=== PATIENT | male | born 1990 | race Caucasian/White ===

== ENCOUNTER 2022-09-11 12:30 | Emergency (ER) | payer MEDICAID ==
[~2022-09-11] VITALS: Ht 175.3 cm; Wt 72.6 kg
[2022-09-11 13:17] VITALS: BP 146/93
--- NOTE | 2022-09-11 14:14 | NUR ---
PATIENT CALLED FOR X RAY BY [employer], NO ANSWER IN LOBBY OR OUTSIDE
--- NOTE | 2022-09-11 14:39 | NUR ---
ATTEMPTED TO BRING PT BACK, NOT FOUND IN LOBBY/OUTSIDE
--- NOTE | 2022-09-11 15:03 | NUR ---
LAST ATTEMPT TO BRING PT BACK, NOT FOUND IN LOBBY/OUTSIDE. PATIENT LEFT WITHOUT BEING SEEN BY DR. ROMANO. NO FURTHER CARE PROVIDED FOR PATIENT.
== END 2022-09-11 14:14 | disposition left against medical advice (07) ==
LOC: MED 12:30
DX: R10.9 Unspecified abdominal pain (principal); Z53.21 Procedure and treatment not carried out due to patient leaving prior to being seen by health care provider

== ENCOUNTER 2023-01-30 08:45 | Emergency (ER) | payer MEDICAID ==
[~2023-01-30] VITALS: Ht 167.6 cm; Wt 59.0 kg
[2023-01-30 09:10] VITALS: BP 132/76; PULSE 89; RESP 18; TEMP 98.1; O2SAT 98
[2023-01-30 09:20] VITALS: O2SAT 98
--- NOTE | 2023-01-30 09:20 | NUR ---
MD LOO AT BEDSIDE FOR EVALUATION
[2023-01-30 09:22] VITALS: O2SAT 98
[2023-01-30] MEDS ORDERED: ACETAMINOPHEN 325 MG TAB PO ONE (09:30)
--- NOTE | 2023-01-30 09:36 | NUR ---
pt taken to ct via w/c
--- NOTE | 2023-01-30 10:25 | NUR ---
Patient discharged with v/s stable. Written and verbal after care instructions given and explained. Patient verbalized understanding. Ambulatory with steady gait. All questions addressed prior to discharge. Advised to follow up with PMD.
--- NOTE | 2023-01-30 11:14 | NUR ---
The patient's care was reviewed and supervised by [place] 05 STEPHEN, RN.
== END 2023-01-30 10:25 | disposition home or self-care (01) ==
LOC: MED 08:45
DX: R51.9 Headache, unspecified (principal)
CPT/HCPCS: 70450; 99284

== ENCOUNTER 2023-02-18 02:41 | Emergency (ER) | payer MEDICAID ==
[~2023-02-18] VITALS: Ht 175.3 cm; Wt 81.6 kg
[2023-02-18 02:52] VITALS: BP 127/83; PULSE 87; RESP 16; TEMP 98
--- NOTE | 2023-02-18 02:52 | NUR ---
to bed ambulatory
[2023-02-18] MEDS ORDERED: ACETAMINOPHEN EXTRA STRENGTH 500 MG TAB PO ONE (03:25)
--- NOTE | 2023-02-18 03:33 | NUR ---
Pt was taken to xray
--- NOTE | 2023-02-18 03:33 | NUR ---
Stool sample sent to lab
--- NOTE | 2023-02-18 03:33 | NUR ---
Attempted to collect urine, per pt, unable to urinate at this time.
[2023-02-18] MEDS ORDERED: ALBE200T13 PO (03:38)
[2023-02-18 04:00] VITALS: BP 127/83; PULSE 87; RESP 16; TEMP 98
--- NOTE | 2023-02-18 04:00 | NUR ---
Patient discharged with v/s stable. Written and verbal after care instructions given and explained. New rx albendazole Patient verbalized understanding. Ambulatory with steady gait. All questions addressed prior to discharge. Advised to follow up with PMD. Addendum: 02/18/23 at 0413 by [email or web address] Pain reassessment not done due to reassessment note being due and patient discharged at this time
== END 2023-02-18 04:00 | disposition home or self-care (01) ==
LOC: MED 02:41
DX: B82.0 Intestinal helminthiasis, unspecified (principal); F17.200 Nicotine dependence, unspecified, uncomplicated; Z79.899 Other long term (current) drug therapy
CPT/HCPCS: 36415; 74022; 87015; 87045; 87177; 89055; 99284